=== PATIENT | female | born 1970 | race American Indian/Alaskan Native ===

== ENCOUNTER 2017-01-07 07:15 | Day surgery (SDC) | payer OTHER ==
[2017-01-07] MEDS ORDERED: Lactated Ringer's 500 ML IV ONE (07:58)
[2017-01-07] MEDS ORDERED: Propofol 10 mg/ml Inj (20 ML) ONE (08:27)
[2017-01-07 09:21] VITALS: TEMP 97
[2017-01-07 09:34] VITALS: BP 113/68; PULSE 58; RESP 18; O2SAT 100
== END 2017-01-07 09:39 | disposition home or self-care (01) ==
LOC: H.ENDO 07:15
PROVIDERS: ATTEND Internal Medicine Gastroenterology
DX: Z12.11 Encounter for screening for malignant neoplasm of colon (principal); K64.0 First degree hemorrhoids
CPT/HCPCS: 45378; J2001; J2704; J7120